=== PATIENT | female | born 1980 | race Caucasian/White ===

== ENCOUNTER → 2024-05-11 08:39 | Outpatient (REF) | payer BC, SELFPAY | LOC: WDC 08:39 | PROVIDERS: ATTENDING PHYSICIAN Internal Medicine | DX: Z12.39 Encounter for other screening for malignant neoplasm of breast (principal); Z12.31 Encounter for screening mammogram for malignant neoplasm of breast | CPT/HCPCS: 77063; 77067 ==

== ENCOUNTER → 2024-05-24 08:21 | Outpatient (REF) | payer BC, SELFPAY | LOC: WDC 08:21 | PROVIDERS: ATTENDING PHYSICIAN Internal Medicine | DX: R92.8 Other abnormal and inconclusive findings on diagnostic imaging of breast (principal) | CPT/HCPCS: 76642 ==